=== PATIENT | female | born 1970 | race African-American/Black ===

== ENCOUNTER 2017-02-14 11:54 | Emergency (ER) | payer OTHER ==
[~2017-02-14] VITALS: Ht 165.1 cm; Wt 64.2 kg
[~2017-02-14 11:54] MED LIST: ACETAMINOPHEN-1 EAC1; ADVAIR 500-501 EACH; ADVAIR 500/501 DISK IH; ALBUTEROL SULF8.5 GM IH; CLONAZEPAM0.5 MG; DOXEPIN HCL100 MG PO; ESKALITH; FLEXERIL10 MG PO; GABAPENTIN600 MG; HYCODAN SYRUP480 ML PO; INDOCIN50 MG PO; LATUDA20 MG PO; LEXAPRO10 MG; LEXAPRO10 MG PO; LITHIUM CARBON300 M2; LITHIUM CARBON600 MG PO; NAPROSYN500 MG PO; OXYCODONE HCL30 MG PO; PROVENTIL,200 INHALA; SEROQUEL400 MG PO; TRAMADOL HCL50 MG; TRAMADOL HCL50 MG PO; VENLAFAXINE HC150 M1 PO; XANAX2 MG PO; ZOLPIDEM TARTRA10 MG PO
[2017-02-14 12:51] LABS: HEMATOCRIT 40.3 % (36.0-46.0); MCH 27.8 PG (29.0-34.0); MCV 84.1 FL (83-99); PLATELET COUNT 424 K/uL (156-360); RBC DIS.WIDTH-CV 14.4 % (11.8-14.6); RBC DIS.WIDTH-SD 43.8 % (39-53); RED BLOOD COUNT 4.79 M/uL (3.80-5.20); WHITE BLOOD COUNT 9.9 K/uL (4.1-10.2)
[2017-02-14 13:04] LABS: CHLORIDE 108 mEq/L (99-109); POTASSIUM 3.9 mEq/L (3.7-5.4); SODIUM 138 mEq/L (136-147)
[2017-02-14 13:07] LABS: GLUCOSE 96 mg/dL (70-99)
[2017-02-14 13:08] LABS: ANION GAP 10 MEQ/L (2-14)
[2017-02-14 13:10] LABS: ALKALINE PHOSPHATASE 96 IU/L (3-129); GFR ESTIMATE (CALCULATED) > 59 mL/min/
[2017-02-14 13:11] LABS: UREA NITROGEN (BUN) 10 mg/dL (9-23)
[2017-02-14 13:19] LABS: QUANTITATIVE HCG < 4.0 MIU/ML
[2017-02-14 13:27] LABS: ADD MIUA? YES; BILIRUBIN NEGATIVE; BLOOD MODERATE; COLOR AMBER ((YELLOW)); GLUCOSE (STRIP) NEGATIVE; KETONES NEGATIVE; LEUKOCYTES LARGE; NITRITE NEGATIVE; PROTEIN (STRIP) 30; SPECIFIC GRAVITY 1.023 (1.000-1.030); UROBILINOGEN 0.2 MG/DL (0.2-1.0)
[2017-02-14 13:57] LABS: BACTERIA RARE /HPF; EPITHELIAL CELLS 3+ /HPF; MUCUS 3+ /LPF; RED BLOOD CELLS 15-20 /HPF (0-5); UCUL ADDED? NO; WHITE BLOOD CELLS 30-40 /HPF (0-5)
[2017-02-14] MEDS ORDERED: FLEXERIL10 MG PO (15:09)
[2017-02-14] MEDS ORDERED: KEFLEX500 MG PO (15:09)
[2017-02-14 15:37] VITALS: BP 124/79
== END 2017-02-14 15:27 | disposition home or self-care (01) ==
LOC: RME 11:54 → EME 11:54 → RME 15:27
DX: N39.0 Urinary tract infection, site not specified (principal); M54.5 Low back pain; F17.200 Nicotine dependence, unspecified, uncomplicated
CPT/HCPCS: 80053; 81003; 84702; 85027; 99281; 99284